=== PATIENT | male | born 1950 | race Caucasian/White ===

== ENCOUNTER 2017-11-04 22:38 | Emergency (ER) | payer OTHER ==
[2017-11-04 22:43] VITALS: BP 150/78; PULSE 79; TEMP 98; BMI 34.5
--- NOTE | 2017-11-04 22:55 | PDOC ---
History of Present Illness - General Chief Complaint: Constipation Stated Complaint: ABD PAIN Time Seen by Provider: 11/04/17 22:47 - History of Present Illness Initial Comments: 11/05/17 00:42 67m with pmh of dm2, anal fissure and htn presents with constipation for the past 2 days. Denies taking opiates. Claims that anal fissure is very painful and make him hold his stool. Past History - Past Medical History Allergies/Adverse Reactions: Allergies Allergy/AdvReac Type Severity Reaction Status Date / Time Penicillins Allergy Unknown unknown Verified 11/04/17 22:43 Home Medications: Ambulatory Orders Amlodipine Besylate 10 mg PO DAILY 08/28/15 Aspirin [ASA -] 81 mg PO DAILY 08/28/15 Dorzolamide HCl [Trusopt 2%] 1 drop OP TID 08/28/15 Gentamicin 0.3% Eye Drops - 1 - 2 drop OS QID 08/28/15 Glipizide 10 mg PO BID 08/28/15 Hydrocortisone [Proctosol-Hc] 0 gm RC ASDIR 08/28/15 Losartan Potassium 50 mg PO DAILY 08/28/15 Lovastatin 10 mg PO DAILY 08/28/15 Meclizine HCl [Antivert -] 12.5 mg PO PRN 08/28/15 Meloxicam [Mobic] 15 mg PO DAILY 08/28/15 Metformin HCl [Glucophage] 1,000 mg PO BID 08/28/15 Prednisolone 1% Ophthalmic [Pred Forte 1% -] 1 drop OS QID 08/28/15 Tramadol HCl 50 mg PO QID #20 tablet MDD 4 08/28/15 Diabetes: Yes (type 2) HTN: Yes - Immunization History Immunization Up to Date: Yes - Suicide/Smoking/Psychosocial Hx Smoking History: Never smoked Have you smoked in the past 12 months: No Information on smoking cessation initiated: No Hx Alcohol Use: No Drug/Substance Use Hx: No Substance Use Type: None Review of Systems - Review of Systems Able to Perform ROS?: Yes Is the patient limited Mohawk proficient: No Constitutional: No: Symptoms Reported HEENTM: No: Symptoms Reported Respiratory: No: Symptoms reported Cardiac (ROS): No: Symptoms Reported ABD/GI: Yes: See HPI : No: Symptoms Reported Musculoskeletal: No: Symptoms Reported Integumentary: No: Symptoms Reported Neurological: No: Symptoms reported All Other Systems: Reviewed and Negative *Physical Exam - Vital Signs Last Vital Signs Temp Pulse Resp BP Pulse Ox 98.0 F 79 16 150/78 99 11/04/17 22:42 11/04/17 22:42 11/04/17 22:42 11/04/17 22:42 11/04/17 22:42 - Physical Exam General Appearance: Yes: Nourished, Appropriately Dressed, Apparent Distress, Mild Distress HEENT: positive: EOMI, VIVIANE, Normal ENT Inspection Respiratory/Chest: positive: Lungs Clear, Normal Breath Sounds. negative: Chest Tender, Respiratory Distress Cardiovascular: positive: Regular Rhythm, Regular Rate, S1, S2 Gastrointestinal/Abdominal: positive: Normal Bowel Sounds, Protuberent. negative: Tender, Rebound Musculoskeletal: positive: Normal Inspection. negative: CVA Tenderness Extremity: positive: Normal Capillary Refill, Normal Inspection, Normal Range of Motion Integumentary: positive: Normal Color, Dry, Warm Neurologic: positive: Fully Oriented, Alert, Normal Mood/Affect, Normal Response , Motor Strength 5/5 Medical Decision Making - Medical Decision Making 11/05/17 00:53 Will attempt to manually disimpact patient after softening stools with enema 11/05/17 02:56 Moved his bowels profusely and with great ease. Patient ok to be discharged. *DC/Admit/Observation/Transfer Diagnosis at time of Disposition: Improved mood - Discharge Dispostion Disposition: DISCHARGE TO HOSPICE-HOME - Referrals - Patient Instructions - Post Discharge Activity
[2017-11-04] MEDS ORDERED: SODIUM PHOSPHATE/NA BIPHOS 133 ML ENEMA PR ONE (23:18)
[2017-11-05] MEDS ORDERED: GLYCERIN 1 RECTAL SUPPOSITORY, PEDIATRIC RC ONE (00:13)
--- NOTE | 2017-11-05 00:45 | PDOC ---
Attending Attestation - HPI HPI: 11/05/17 01:10 The patient is a 67 year old male with a significant PMH of anal fissure, HTN, and diabetes who presents to the emergency department for evaluation of constipation over the past 2 days. The patient states it is painful when he has a BM secondary to his anal fissure and has used the bathroom less often. The patient denies nausea, vomiting, or diarrhea. He denies fevers or chills. He denies chest pain or shortness of breath. Allergies: Penicillins PCP: None reported. <Scooter Ricci - Last Filed: 11/05/17 01:10> - Resident Resident Name: John Ridley - ED Attending Attestation I have performed the following: I have examined & evaluated the patient, The case was reviewed & discussed with the resident, I agree w/resident's findings & plan, Exceptions are as noted - Physicial Exam PE: 11/05/17 01:31 GENERAL: The patient is screaming while attempting to have a bowel movement HEAD: Normal EYES: PERRLA, EOMI, sclera anicteric, conjunctiva clear. ENT: Moist mucous membranes. LUNGS: Breath sounds equal, clear to auscultation bilaterally. No wheezes HEART:Regular rate and rhythm, normal S1 and S2 without murmur, rub or gallop. ABDOMEN: Soft, nontender, normoactive bowel sounds. No guarding, no rebound. EXTREMITIES: Normal range of motion NEUROLOGICAL: Cranial nerves II through XII grossly intact. Normal speech. No focal neurological deficits. MUSCULOSKELETAL: Back non-tender to palpation, no CVA tenderness SKIN: Warm, Dry, normal turgor, no rashes or lesions noted. - Medical Decision Making 11/05/17 01:32 67 yo M presenting with a complaint of anal pain secondary to anal fissure and fear of having a bowel movement No abdominal tenderness Pt was given an enema prior to my assessment and then he forced himself to have a bowel movement He feel better <Rachel Starr - Last Filed: 11/05/17 01:35>
== END 2017-11-05 02:36 | disposition hospice, home (50) ==
LOC: JER 22:38
DX: K59.00 Constipation, unspecified (principal); I10 Essential (primary) hypertension; E11.9 Type 2 diabetes mellitus without complications; Z79.84 Long term (current) use of oral hypoglycemic drugs; K60.2 Anal fissure, unspecified
CPT/HCPCS: 99282-25

== ENCOUNTER 2017-12-06 23:15 | Emergency (ER) | payer OTHER ==
[2017-12-06 23:26] VITALS: BP 133/74; PULSE 59; TEMP 97.8; BMI 33.8
[2017-12-07] MEDS ORDERED: SODIUM CHLORIDE 1,000 ML IV STA (01:01)
[2017-12-07] MEDS ORDERED: PANTOPRAZOLE SODIUM 40 MG in SODIUM CHLORIDE 100 ML IVPB ONE (01:01)
[2017-12-07] MEDS ORDERED: KETOROLAC TROMETHAMINE 30 MG/1 ML VIAL IVPUSH ONE (01:01)
--- NOTE | 2017-12-07 01:01 | PDOC ---
History of Present Illness - General History Source: Patient Exam Limitations: No Limitations - History of Present Illness Initial Comments: 12/07/17 01:09 The patient is a 67 year old male, with a significant past medical history of anal fissure, HTN, and diabetes, who presents to the emergency department with, abdominal pain. As per patient, his symptoms onset after doing the preparation for his endoscopy which is scheduled for tomorrow. He describes his pain as a cramping with associated nausea. He denies any recent fevers, chills, headache or dizziness. He denies any recent diarrhea or constipation. He denies any recent chest pain or shortness of breath. He denies any recent dysuria, frequency, urgency or hematuria. Allergies: Penicillins. Social History: Nonsmoker. Denies EtOH use and recreational drug use. <Alireza Davis - Last Filed: 12/07/17 01:09> - General History Source: Patient <Huy Toure - Last Filed: 12/07/17 05:03> - General Chief Complaint: Pain Stated Complaint: ABDOMINAL PAIN Time Seen by Provider: 12/07/17 00:58 Past History <Alireza Davis - Last Filed: 12/07/17 01:09> - Past Medical History COPD: No Diabetes: Yes (type 2) HTN: Yes Hypercholesterolemia: Yes Other medical history: L eye blindness - Immunization History Immunization Up to Date: Yes - Suicide/Smoking/Psychosocial Hx Smoking History: Never smoked Have you smoked in the past 12 months: No Information on smoking cessation initiated: No Hx Alcohol Use: No Drug/Substance Use Hx: No Substance Use Type: None <Huy Toure - Last Filed: 12/07/17 05:03> - Past Medical History Allergies/Adverse Reactions: Allergies Allergy/AdvReac Type Severity Reaction Status Date / Time Penicillins Allergy Unknown unknown Verified 12/06/17 23:23 Home Medications: Ambulatory Orders Amlodipine Besylate 10 mg PO DAILY 08/28/15 Aspirin [ASA -] 81 mg PO DAILY 08/28/15 Dorzolamide HCl [Trusopt 2%] 1 drop OP TID 08/28/15 Gentamicin 0.3% Eye Drops - 1 - 2 drop OS QID 08/28/15 Glipizide 10 mg PO BID 04/29/16 Losartan Potassium 50 mg PO DAILY 08/28/15 Lovastatin 10 mg PO DAILY 08/28/15 Meclizine HCl [Antivert -] 12.5 mg PO PRN 08/28/15 Meloxicam [Mobic] 15 mg PO DAILY 08/28/15 Metformin HCl [Glucophage] 1,000 mg PO BID 08/28/15 Prednisolone 1% Ophthalmic [Pred Forte 1% -] 1 drop OS QID 08/28/15 Tramadol HCl 50 mg PO QID #20 tablet MDD 4 08/28/15 Review of Systems - Review of Systems Able to Perform ROS?: Yes Comments:: 12/07/17 01:09 CONSTITUTIONAL: Absent: fever, no chills, no fatigue EYES: Absent: visual changes ENT: Absent: ear pain, no sore throat CARDIOVASCULAR: Absent: chest pain, no palpitations RESPIRATORY: Absent: cough, no SOB GI: Present: Abdominal pain. Nausea. Absent: no vomiting, no constipation, no diarrhea GENITOURINARY: Absent: dysuria, no frequency, no hematuria MUSKULOSKELETAL: Absent: back pain, no arthralgia, no myalgia SKIN: Absent: rash NEURO: Absent: headache All Other Systems: Reviewed and Negative <Alireza Davis - Last Filed: 12/07/17 01:09> *Physical Exam - Vital Signs Last Vital Signs Temp Pulse Resp BP Pulse Ox 97.8 F 59 L 20 133/74 99 12/06/17 23:23 12/06/17 23:23 12/06/17 23:23 12/06/17 23:23 12/06/17 23:23 - Physical Exam Comments: 12/07/17 01:09 +GENERAL: Mild distress. Well developed, well nourished. Awake and alert. HEENT: Normocephalic, atraumatic. PERRLA, EOMI. No conjunctival pallor. Sclera are non- icteric. Moist mucous membranes. Oropharynx is clear. NECK: Supple. Full ROM. No JVD. Carotid pulses 2+ and symmetric, without bruits. No thyromegaly. No lymphadenopathy. CARDIOVASCULAR: Regular rate and rhythm. No murmurs, rubs, or gallops. Distal pulses are 2+ and symmetric. PULMONARY: No evidence of respiratory distress. Lungs clear to auscultation bilaterally. No wheezing, rales or rhonchi. +ABDOMINAL: Diffuse tenderness. Soft. Non-distended. No rebound or guarding. No organomegaly. MUSCULOSKELETAL Normal range of motion at all joints. No bony deformities or tenderness. No CVA tenderness. EXTREMITIES: No cyanosis. No clubbing. No edema. No calf tenderness. SKIN: Warm and dry. Normal capillary refill. No rashes. No jaundice. NEUROLOGICAL: Alert, awake, appropriate. Cranial nerves 2-12 intact. No deficits to light touch and temperature in face, upper extremities and lower extremities. No motor deficits in the in face, upper extremities and lower extremities. Normoreflexic in the upper and lower extremities. Normal speech. Toes are down- going bilaterally. Gait is normal without ataxia. PSYCHIATRIC: Cooperative. Good eye contact. Appropriate mood and affect. <Alireza Davis - Last Filed: 12/07/17 01:09> - Vital Signs Last Vital Signs Temp Pulse Resp BP Pulse Ox 97.8 F 59 L 20 133/74 99 12/06/17 23:23 12/06/17 23:23 12/06/17 23:23 12/06/17 23:23 12/06/17 23:23 <Huy Toure - Last Filed: 12/07/17 05:03> ED Treatment Course - LABORATORY CBC & Chemistry Diagram: 12/07/17 01:30 12/07/17 01:30 <Huy Toure - Last Filed: 12/07/17 05:03> *DC/Admit/Observation/Transfer - Attestations Scribe Attestion: 12/07/17 01:09 Documentation prepared by Alireza Davis, acting as medical coder for Huy Toure DO. <Alireza Davis - Last Filed: 12/07/17 01:09> - Discharge Dispostion Decision to Admit order: No <Huy Toure - Last Filed: 12/07/17 05:03> Diagnosis at time of Disposition: Abdominal pain - Discharge Dispostion Disposition: HOME Condition at time of disposition: Stable - Patient Instructions Printed Discharge Instructions: DI for Abdominal Pain-Adult Print Language: CHINESE
[2017-12-07] MEDS ORDERED: KETOROLAC TROMETHAMINE 30 MG/1 ML VIAL ONE (01:37)
[2017-12-07] MEDS ORDERED: PANTOPRAZOLE SODIUM 40 MG/100 ML BAG IVPB ONE (01:37)
[2017-12-07 01:41] LABS: BASO % 0.6 % (0-2.0); EOS % 0.8 % (0-4.5); HEMATOCRIT 41.2 % (35.4-49); HEMOGLOBIN 14.1 GM/dL (11.7-16.9); LYMPH % 16.4 % (8-40); MCH 31.1 pg (25.7-33.7); MCHC 34.2 g/dl (32.0-35.9); MEAN PLT VOLUME 8.6 fl (7.5-11.1); MONO % 5.8 % (3.8-10.2); NEUT % 76.4 % (42.8-82.8); PLATELET COUNT 209 K/MM3 (134-434); RBC 4.53 M/mm3 (4.00-5.60); RDW 14.1 % (11.9-15.9); WHITE BLOOD COUNT 8.2 K/mm3 (4.0-10.0)
[2017-12-07] MEDS ORDERED: ONDANSETRON 4 MG/2 ML VIAL IVPUSH STA (01:56)
[2017-12-07 02:04] LABS: INR 1.06 (0.83-1.09)
[2017-12-07] MEDS ORDERED: ONDANSETRON 4 MG/2 ML VIAL ONE (02:06)
[2017-12-07 02:11] LABS: ALBUMIN 4.3 g/dl (3.4-5.0); ANION GAP 9 (8-16); BILIRUBIN,TOTAL 0.6 mg/dL (0.2-1.0); BLOOD UREA NITROGEN 17 mg/dL (7-18); CHLORIDE 99 mmol/L (98-107); CO2 28 mmol/L (21-32); CREATININE 1.3 mg/dL (0.7-1.3); MAGNESIUM 2.2 mg/dL (1.8-2.4); POTASSIUM 4.7 mmol/L (3.5-5.1); SGOT/AST 14 U/L (15-37); SGPT/ALT 22 U/L (12-78); SODIUM 136 mmol/L (136-145)
[2017-12-07 02:12] LABS: ALK PHOS 61 U/L (45-117); TOT PROT 8.6 g/dl (6.4-8.2)
[2017-12-07 02:14] LABS: LIPASE 215 U/L (73-393)
[2017-12-07 02:15] LABS: GLUCOSE,RANDOM 378 mg/dL (74-106)
[2017-12-07] MEDS ORDERED: LIDOCAINE VISCOUS 2% ORAL/TOP 20 ML UNIT-DOSE CUP MM ONE (04:01)
[2017-12-07] MEDS ORDERED: MAG HYDROX/AL HYDROX/SIMETH 30 ML UNIT-DOSE CUP PO ONE (04:01)
[2017-12-07] MEDS ORDERED: MAG HYDROX/AL HYDROX/SIMETH 30 ML UNIT-DOSE CUP ONE (04:05)
[2017-12-07] MEDS ORDERED: LIDOCAINE VISCOUS 2% ORAL/TOP 20 ML UNIT-DOSE CUP ONE (04:05)
[2017-12-07] MEDS ORDERED: SUCRALFATE 1 GM TABLET (FP) PO STA (05:11)
[2017-12-07] MEDS ORDERED: SUCRALFATE 1 GM TABLET (FP) ONE (05:11)
[2017-12-07] MEDS ORDERED: PROMETHAZINE HCL 25 MG TABLET PO ONE (05:39)
== END 2017-12-07 07:59 | disposition home or self-care (01) ==
LOC: JER 23:15
PROC: 3E0333Z Introduction of Anti-inflammatory into Peripheral Vein, Percutaneous Approach (ICD-10-PCS; principal; 2017-12-06)
PROC: 3E033GC Introduction of Other Therapeutic Substance into Peripheral Vein, Percutaneous Approach (ICD-10-PCS; 2017-12-06)
PROC: 3E0337Z Introduction of Electrolytic and Water Balance Substance into Peripheral Vein, Percutaneous Approach (ICD-10-PCS; 2017-12-06)
DX: R10.9 Unspecified abdominal pain (principal); I10 Essential (primary) hypertension; E11.9 Type 2 diabetes mellitus without complications; K60.2 Anal fissure, unspecified; E78.00 Pure hypercholesterolemia, unspecified
CPT/HCPCS: 36415; 80053; 83690; 83735; 85025; 85610; 99284-25; J7030

== ENCOUNTER 2023-02-02 04:55 | Day surgery (SDC) | payer OTHER ==
[2023-02-01 13:17] VITALS: BMI 34.4
[2023-02-02] MEDS ORDERED: LIDOCAINE HCL 1%, 10 MG/ML (20ML VIAL) ONE (07:50)
[2023-02-02] MEDS ORDERED: HEPARIN NA (PORCINE) 5,000 UNITS/ML 1ML VIAL ONE (07:50)
[2023-02-02] MEDS ORDERED: IOVERSOL 320 MG/ML ML IV ONE ×2 (08:02→09:27)
[2023-02-02] MEDS ORDERED: ceFAZolin SODIUM 1 GM VIAL IVPB ONE ×2 (08:03→09:15)
[2023-02-02] MEDS ORDERED: LIDOCAINE HCL 1%, 10 MG/ML (20ML VIAL) INF ONE ×2 (08:04→09:25)
[2023-02-02] MEDS ORDERED: HEPARIN NA (PORCINE) 5,000 UNITS/ML 1ML VIAL IVPUSH ONE ×2 (08:05→09:27)
[2023-02-02] MEDS ORDERED: MIDAZOLAM HCL 2 MG/2 ML SINGLE DOSE VIAL ONE (08:35)
[2023-02-02] MEDS ORDERED: ceFAZolin SODIUM 1 GM VIAL ONE (08:36)
[2023-02-02] MEDS ORDERED: ONDANSETRON 4 MG/2 ML VIAL ONE (08:37)
[2023-02-02] MEDS ORDERED: LABETALOL HCL 20 MG/4 ML VIAL ONE (09:22)
[2023-02-02] MEDS ORDERED: GLYCOPYRROLATE 0.2 MG/1 ML VIAL ONE ×2 (09:22→09:29)
[2023-02-02] MEDS ORDERED: METOCLOPRAMIDE HCL INJECTION 10 MG/2 ML VIAL ONE (09:29)
[2023-02-02] MEDS ORDERED: CLOPIDOGREL BISULFATE 75 MG TABLET (FP) PO ONE (10:30)
[2023-02-02] MEDS ORDERED: LACTATED RINGERS SOLUTION 1,000 ML IV SCH (10:30)
[2023-02-02] MEDS ORDERED: CLOPIDOGREL BISULFATE 75 MG TABLET (FP) ONE (11:44)
[2023-02-02 13:44] VITALS: RESP 18
[2023-02-02 14:37] VITALS: BP 126/58; PULSE 53; TEMP 97.6
== END 2023-02-02 14:30 | disposition home or self-care (01) ==
LOC: JASU-SURG 04:55
PROVIDERS: ATTEND Surgery Vascular Surgery
PROC: 047P3ZZ Dilation of Right Anterior Tibial Artery, Percutaneous Approach (ICD-10-PCS; 2023-02-02)
PROC: 047K3Z1 Dilation of Right Femoral Artery using Drug-Coated Balloon, Percutaneous Approach (ICD-10-PCS; principal; 2023-02-02 09:00)
DX: I70.211 Atherosclerosis of native arteries of extremities with intermittent claudication, right leg (principal); I12.9 Hypertensive chronic kidney disease with stage 1 through stage 4 chronic kidney disease, or unspecified chronic kidney disease; E11.22 Type 2 diabetes mellitus with diabetic chronic kidney disease; N18.9 Chronic kidney disease, unspecified; N18.30 Chronic kidney disease, stage 3 unspecified
CPT/HCPCS: 37225; 37228; C1885; C2623; 36415; 76000-TC-FY; 82010; 82947; 94760; C1760; C1769; J1644

== ENCOUNTER 2023-02-05 17:21 | Emergency (ER) | payer OTHER ==
[2023-02-05 17:37] VITALS: RESP 18; TEMP 98.3; BMI 35.2
[2023-02-05 18:11] VITALS: BP 123/72; PULSE 67
[2023-02-05] MEDS ORDERED: ACETAMINOPHEN 500 MG TABLET (FP) PO ONE (18:32)
[2023-02-05] MEDS ORDERED: ACETAMINOPHEN 325 MG TABLET (FP) ONE (18:42)
[2023-02-05 19:00] LABS: BASO % 0.7 % (0-2.0); EOS % 4.9 % (0-4.5); HEMATOCRIT 39.1 % (35.4-49); HEMOGLOBIN 13.8 GM/dL (11.7-16.9); LYMPH % 22.8 % (8-40); MCH 31.7 pg (25.7-33.7); MCHC 35.3 g/dl (32.0-35.9); MEAN CELL VOLUME 89.8 fl (80-96); MEAN PLT VOLUME 8.1 fl (7.5-11.1); MONO % 9.1 % (3.8-10.2); NEUT % 62.5 % (42.8-82.8); PLATELET COUNT 154 10^3/uL (134-434); RBC 4.36 M/mm3 (4.00-5.60); RDW 14.1 % (11.9-15.9); WHITE BLOOD COUNT 5.8 K/mm3 (4.0-10.0)
== END 2023-02-05 19:48 | disposition home or self-care (01) ==
LOC: JER 17:21
DX: T81.89XA Other complications of procedures, not elsewhere classified, initial encounter (principal); M79.604 Pain in right leg; M79.605 Pain in left leg; I73.9 Peripheral vascular disease, unspecified; G89.18 Other acute postprocedural pain; Y83.8 Other surgical procedures as the cause of abnormal reaction of the patient, or of later complication, without mention of misadventure at the time of the procedure
CPT/HCPCS: 36415; 85025; 99283-25

== ENCOUNTER 2023-08-14 04:08 | Day surgery (SDC) | payer OTHER ==
[2023-08-10 13:41] VITALS: BMI 35.5
[2023-08-14 07:31] VITALS: BP 176/84; PULSE 62; RESP 16; TEMP 98
== END 2023-08-14 09:00 | disposition home or self-care (01) ==
LOC: JASU-SURG 04:08
PROVIDERS: ATTEND Urology
DX: Z53.8 Procedure and treatment not carried out for other reasons (principal)
CPT/HCPCS: 82962

== ENCOUNTER 2023-08-28 03:47 | Day surgery (SDC) | payer OTHER ==
[2023-08-23 13:04] VITALS: BMI 35.5
[2023-08-28] MEDS ORDERED: MIDAZOLAM HCL 2 MG/2 ML SINGLE DOSE VIAL ONE (08:27)
[2023-08-28] MEDS ORDERED: FENTANYL CITRATE/PF 50 MCG/ML VIAL ONE (08:27)
[2023-08-28] MEDS ORDERED: PROPOFOL 20 ML ONE (08:56)
[2023-08-28] MEDS ORDERED: DEXAMETHASONE SOD PHOSPHATE 4 MG/1 ML VIAL ONE (09:08)
[2023-08-28] MEDS ORDERED: ONDANSETRON 4 MG/2 ML VIAL ONE (09:08)
[2023-08-28] MEDS ORDERED: GLYCOPYRROLATE 0.2 MG/1 ML VIAL ONE (09:23)
[2023-08-28] MEDS ORDERED: ONDANSETRON 4 MG/2 ML VIAL IVPUSH PRN (09:50)
[2023-08-28] MEDS ORDERED: LACTATED RINGERS SOLUTION 1,000 ML IV SCH (10:00)
[2023-08-28 10:20] VITALS: BP 110/66
[2023-08-28 11:37] VITALS: PULSE 50; RESP 18; TEMP 97.7
== END 2023-08-28 11:38 | disposition home or self-care (01) ==
LOC: JASU-SURG 03:47
PROVIDERS: ATTEND Urology
PROC: 0TF3XZZ Fragmentation in Right Kidney Pelvis, External Approach (ICD-10-PCS; principal; 2023-08-28 08:30)
DX: N20.0 Calculus of kidney (principal)
CPT/HCPCS: 82962; 94760

== ENCOUNTER 2023-09-04 22:00 | Emergency (ER) | payer OTHER ==
[2023-09-04 22:13] VITALS: RESP 18; TEMP 98.2; BMI 35.5
[2023-09-04] MEDS ORDERED: ASPIRIN 81 MG CHEWABLE TABLETS ONE (23:11)
[2023-09-04 23:14] VITALS: BP 148/53; PULSE 78
[2023-09-04] MEDS: ASPIRIN 81 MG CHEWABLE TABLETS PO ONE (23:14)
[2023-09-04 23:28] LABS: BASO % 0.9 % (0-2.0); EOS % 2.6 % (0-4.5); HEMOGLOBIN 14.2 GM/dL (11.7-16.9); LYMPH % 31.7 % (8-40); MCH 30.4 pg (25.7-33.7); MCHC 33.7 g/dl (32.0-35.9); MEAN CELL VOLUME 90.2 fl (80-96); MEAN PLT VOLUME 8.7 fl (7.5-11.1); MONO % 9.5 % (3.8-10.2); NEUT % 55.3 % (42.8-82.8); PLATELET COUNT 160 10^3/uL (134-434); RBC 4.65 M/mm3 (4.00-5.60); RDW 14.1 % (11.9-15.9); WHITE BLOOD COUNT 7.4 K/mm3 (4.0-10.0)
[2023-09-04 23:33] LABS: INR 1.04 (0.83-1.09); PROTHROMBIN TIME (PATIENT) 11.7 SEC (9.7-13.0)
[2023-09-04 23:36] LABS: ACTIVATED PTT 33.4 SECONDS (25.2-36.5)
[2023-09-04 23:47] LABS: POTASSIUM 5.2 mmol/L (3.5-5.1)
[2023-09-04 23:50] LABS: ALBUMIN 3.3 g/dl (3.4-5.0); BLOOD UREA NITROGEN 17.4 mg/dL (7-18); MAGNESIUM 2.1 mg/dL (1.8-2.4)
[2023-09-04 23:53] LABS: CREATININE 1.3 mg/dL (0.55-1.3)
[2023-09-04 23:54] LABS: BILIRUBIN,TOTAL 0.5 mg/dL (0.2-1); TOT PROT 7.4 g/dl (6.4-8.2)
== END 2023-09-05 02:53 | disposition home or self-care (01) ==
LOC: JER 22:00
DX: I10 Essential (primary) hypertension (principal); R00.2 Palpitations; Z20.822 Contact with and (suspected) exposure to COVID-19
CPT/HCPCS: 0241U-QW; 36415; 71045-TC-FY; 71046-TC-FY; 80053; 83735; 83880; 84484; 85025; 85610; 85730; 93005; 93010; 99285-25